=== PATIENT | male | born 1960 | race Two or more races ===

== ENCOUNTER 2020-03-23 17:39 | Inpatient (IN) | payer OTHER ==
[~2020-03-23] VITALS: Ht 170.2 cm; Wt 92.6 kg
--- NOTE | 2020-03-23 18:13 | NUR ---
FLODINA RN: PT TO ROOM 28, PLACED ON [employer], PT HAS PACEMAKER, EKG ORDERED. PT PLACED ON 4LNC, SAT 92%
--- NOTE | 2020-03-23 18:26 | NUR ---
TURNER OFF AT BEDSIDE FOR EKG.
[2020-03-23 18:28] LABS: BASOPHILS % (AUTO) 1 % (0-1); EOSINOPHILS % (AUTO) 2 % (1-7); LYMPHOCYTES % (AUTO) 8 % (22-44); MEAN CORPUSCULAR HGB CONC 34.5 g/dL (33.2-36.2); MEAN PLATELET VOLUME 9.2 fL (7.4-10.4); MONOCYTES % (AUTO) 8 % (2-9); NEUTROPHILS % (AUTO) 81 % (42-75); PLATELET COUNT 241 x10^3/uL (130-400); RED BLOOD COUNT 4.77 x10^6/uL (4.38-5.82); RED CELL DISTRIBUTION WIDTH 13.2 % (9.4-14.8)
[2020-03-23 18:31] LABS: MD NO
[2020-03-23 18:36] LABS: ALBUMIN 2.8 g/dL (3.4-5.0); ANION GAP 7 mmol/L (5-15); CALCIUM 8.4 mg/dL (8.5-10.1); CHLORIDE 105 mmol/L (98-107)
[2020-03-23] MEDS ORDERED: RIVA20TA PO (18:36)
[2020-03-23 18:42] LABS: CREATININE 0.77 mg/dL (0.7-1.3)
--- NOTE | 2020-03-23 18:45 | NUR ---
PT REFUSED PIV PLACEMENT FOR POSSIBLE ADMIT. PT AND (ON PHONE) STATE THEY DON'T WANT PT ADMITTED.
[2020-03-23 18:55] LABS: TROPONIN I 0.694 ng/mL (0.000-0.045)
--- NOTE | 2020-03-23 19:22 | NUR ---
ALL RESULTS BACK AT THIS TIME. CHART UP FOR RECHEKC.
[2020-03-23] MEDS ORDERED: AZITHROMYCIN 500 MG in SODIUM CHLORIDE 0.9% 250 ML IV ONE (19:30)
[2020-03-23] MEDS ORDERED: DEXAMETHASONE 4 MG/ML, 1ML IVPush ONE ×2 (19:30→20:30)
[2020-03-23] MEDS ORDERED: CEFTRIAXONE PMX 1GM/50ML 50 ML IV ONE (19:30)
[2020-03-23] MEDS ORDERED: CEFTRIAXONE PMX 1GM/50ML 50 ML ONE (20:20)
[2020-03-23] MEDS ORDERED: DEXAMETHASONE 4 MG/ML, 1ML ONE (20:20)
[2020-03-23] MEDS ORDERED: ASPIRIN 81 MG TABLET CHEW ONE (20:24)
[2020-03-23] MEDS ORDERED: ASPIRIN 81 MG TABLET CHEW PO ONE (20:30)
--- NOTE | 2020-03-23 20:35 | NUR ---
PT AGREES TO BE ADMITTED. PIV PLACED. MEDS ADMIN PER JUN. PT RESTING COMFORTABLY ON GURNEY. NADN. RESP EVEN AND UNLABORED.
[2020-03-23] MEDS ORDERED: GUAIFENESIN/DM 200-20MG, 10ML UDC PO PRN (21:30)
[2020-03-23] MEDS ORDERED: CEFTRIAXONE PMX 1GM/50ML 50 ML IV SCH (21:30)
[2020-03-23] MEDS ORDERED: HEPARIN 5,000 UNITS/ML, 1ML SQ SCH (21:30)
[2020-03-23] MEDS ORDERED: NITROGLYCERIN 0.4 MG BOTTLE (25 TABS) SL PRN (21:30)
[2020-03-23] MEDS ORDERED: ACETAMINOPHEN 325 MG TABLET PO PRN (21:30)
[2020-03-23] MEDS ORDERED: POLYETHYLENE GLYCOL 17 GM PACKET PO PRN (21:30)
[2020-03-23] MEDS ORDERED: BISACODYL 10 MG SUPP PR PRN (21:30)
[2020-03-23] MEDS ORDERED: AZITHROMYCIN 500 MG in SODIUM CHLORIDE 0.9% 250 ML IV SCH (21:30)
[2020-03-23] MEDS ORDERED: ONDANSETRON ODT 4 MG PO PRN (21:30)
--- NOTE | 2020-03-23 22:22 | NUR ---
REPORT GIVEN TO BHAKTI LEON.
--- NOTE | 2020-03-23 23:30 | NUR ---
PT RESTING ON GURNEY, TALKING ON PHONE. VSS AND NO ADDITIONAL NEEDS EXPRESSED AT THIS TIME.
[2020-03-23] MEDS ORDERED: ASCORBIC ACID 500 MG TABLET ONE (23:54)
[2020-03-24] MEDS: SODIUM CHLORIDE 0.9% 1,000 ML IV SCH ×3 (00:03→15:53)
[2020-03-24] MEDS: ASCORBIC ACID 500 MG TABLET PO SCH ×3 (00:03→20:37)
--- NOTE | 2020-03-24 00:12 | NUR ---
PT PLACED ON HOSPITAL BED AND MEDICATED PER EMAR. VSS AND WILL CONT TO MONITOR.
[2020-03-24 01:02] LABS: TROPONIN I 0.705 ng/mL (0.000-0.045)
--- NOTE | 2020-03-24 01:02 | NUR ---
CRITICAL TROP. 0.800 Rosie GUNN NOTIFIED
--- NOTE | 2020-03-24 01:07 | NUR ---
Dr. Amin notified of Trop 0.705, no additional orders at this time.
--- NOTE | 2020-03-24 02:31 | NUR ---
PT O2 DROPPED TO 85% ON 3L NC, PT PLACED ON OXYMASK AT 5L AT THIS TIME. O2 SAT 92%
--- NOTE | 2020-03-24 04:08 | NUR ---
Report from BHAKTI Mishra. Pt sleeping, On monitor, o2, will continue to monitor.
--- NOTE | 2020-03-24 04:35 | NUR ---
Pt awake, RR unlabored, sats holding between 91-95% on oximask 5l. He denies sob or cp. On monitor paced rhythm no ectopy, no st elevation noted. AIDET provided.
--- NOTE | 2020-03-24 05:04 | NUR ---
Plan for AM; Get-n-Post med, serial trop.
[2020-03-24] MEDS ORDERED: ASPIRIN 81 MG TABLET EC ONE (05:16)
[2020-03-24] MEDS: ASPIRIN 81 MG TABLET EC PO SCH (05:19)
--- NOTE | 2020-03-24 05:22 | NUR ---
Medicated per MAR with few sips of water. No cp, no sob. Sats remain 88-94% on 6L oximask.
[2020-03-24 06:09] LABS: BASOPHILS % (AUTO) 0 % (0-1); EOSINOPHILS % (AUTO) 0 % (1-7); LYMPHOCYTES % (AUTO) 11 % (22-44); MEAN CORPUSCULAR HGB CONC 34.3 g/dL (33.2-36.2); MEAN PLATELET VOLUME 9.1 fL (7.4-10.4); MONOCYTES % (AUTO) 5 % (2-9); NEUTROPHILS % (AUTO) 84 % (42-75); PLATELET COUNT 256 x10^3/uL (130-400); RED BLOOD COUNT 4.54 x10^6/uL (4.38-5.82); RED CELL DISTRIBUTION WIDTH 13.4 % (9.4-14.8)
[2020-03-24 06:12] LABS: MD NO
[2020-03-24 06:21] LABS: ANION GAP 4 mmol/L (5-15); CALCIUM 8.3 mg/dL (8.5-10.1); CHLORIDE 109 mmol/L (98-107); CHOLESTEROL, TOTAL 122 mg/dL (140-239); CREATININE 0.81 mg/dL (0.7-1.3)
[2020-03-24 06:25] LABS: CHOL/HDL RATIO 3.5; HDL CHOL % 29 % (26-37); HDL CHOLESTEROL (DIRECT) 35 mg/dL (40-60); LDL CHOLESTEROL,CALCULATED 74 mg/dL (54-169); LDL/HDL RATIO 2.1 (0.5-3.0); TRIGLYCERIDES 65 mg/dL (50-200); VLDL CHOLESTEROL 13 mg/dL (0-25)
--- NOTE | 2020-03-24 06:37 | NUR ---
Trop trending down, last 0.620. Pt remains CP free, denies sob RR 30.
--- NOTE | 2020-03-24 06:46 | NUR ---
Report to Austin Ernst
--- NOTE | 2020-03-24 07:21 | NUR ---
REPORT FROM BHAKTI THRASHER. UPON ENTRY TO ROOM, PT USING CELL PHONE. NAD NOTED. PT DENIES DISCOMFORT "I FEEL GOOD". RESPIRATIONS EVEN AND UNLABORED ON OXY MASK. SIDE RAILS UP, CALL LIGHT IN REACH.
--- NOTE | 2020-03-24 07:36 | NUR ---
FIRST ATTEMPT TO CALL REPORT.
[2020-03-24] MEDS ORDERED: DEXAMETHASONE 4 MG/ML, 1ML IVPush SCH (09:00)
[2020-03-24] MEDS: methylPREDNISolone SOD SUCC 125 MG/2 ML IV SCH ×3 (09:30→20:36)
[2020-03-24 10:54] VITALS: BP 128/77
[2020-03-24] MEDS: RIVAROXABAN 20 MG TABLET PO SCH (11:02)
[2020-03-24] MEDS: ZINC SULFATE 220 MG CAPSULE PO SCH (11:03)
[2020-03-24] MEDS: SENNA/DOCUSATE TABLET PO SCH (11:03)
[2020-03-24] MEDS: CHOLECALCIFEROL 5,000u TAB PO SCH (11:03)
[2020-03-24 11:18] VITALS: BP 128/77
[2020-03-24 12:31] VITALS: BP 131/74
[2020-03-24 16:19] LABS: HCT (SEDRATE) 46.6 % (39.2-51.8)
[2020-03-24] MEDS: AZITHROMYCIN 500 MG in SODIUM CHLORIDE 0.9% 250 ML IV SCH (20:33)
[2020-03-24] MEDS: MELATONIN 5 MG TABLET PO PRN (21:51)
[2020-03-24] MEDS: CEFTRIAXONE PMX 1GM/50ML 50 ML IV SCH (22:35)
[2020-03-25 00:31] VITALS: BP 134/79
[2020-03-25] MEDS: methylPREDNISolone SOD SUCC 125 MG/2 ML IV SCH ×4 (03:15→20:30)
[2020-03-25] MEDS: SODIUM CHLORIDE 0.9% 1,000 ML IV SCH ×2 (03:15→14:05)
[2020-03-25] MEDS: ASPIRIN 81 MG TABLET EC PO SCH (05:30)
[2020-03-25 06:45] LABS: CHLORIDE 110 mmol/L (98-107)
[2020-03-25 07:42] LABS: BASOPHILS % (AUTO) 0 % (0-1); EOSINOPHILS % (AUTO) 0 % (1-7); LYMPHOCYTES % (AUTO) 4 % (22-44); MEAN CORPUSCULAR HEMOGLOBIN 32.2 pg (27.5-34.5); MEAN CORPUSCULAR HGB CONC 33.3 g/dL (33.2-36.2); MEAN PLATELET VOLUME 8.8 fL (7.4-10.4); MONOCYTES % (AUTO) 3 % (2-9); NEUTROPHILS % (AUTO) 93 % (42-75); PLATELET COUNT 317 x10^3/uL (130-400); RED CELL DISTRIBUTION WIDTH 13.3 % (9.4-14.8)
[2020-03-25 07:52] VITALS: BP 112/74
[2020-03-25 07:53] VITALS: BP 112/74
[2020-03-25 07:58] LABS: ALBUMIN 2.2 g/dL (3.4-5.0); ANION GAP 6 mmol/L (5-15); CALCIUM 7.8 mg/dL (8.5-10.1); CREATININE 0.65 mg/dL (0.7-1.3)
[2020-03-25 08:17] LABS: MD SCAN
[2020-03-25] MEDS: RIVAROXABAN 20 MG TABLET PO SCH (10:24)
[2020-03-25] MEDS: ASCORBIC ACID 500 MG TABLET PO SCH ×2 (10:24→20:30)
[2020-03-25] MEDS: ZINC SULFATE 220 MG CAPSULE PO SCH (10:24)
[2020-03-25] MEDS: CHOLECALCIFEROL 5,000u TAB PO SCH (10:24)
[2020-03-25] MEDS: SENNA/DOCUSATE TABLET PO SCH (10:24)
[2020-03-25 12:55] VITALS: BP 125/79
[2020-03-25 18:51] VITALS: BP 117/63
[2020-03-25] MEDS: MELATONIN 5 MG TABLET PO PRN (20:30)
[2020-03-25] MEDS: AZITHROMYCIN 500 MG in SODIUM CHLORIDE 0.9% 250 ML IV SCH (20:32)
[2020-03-25] MEDS: CEFTRIAXONE PMX 1GM/50ML 50 ML IV SCH (22:58)
[2020-03-26 01:25] VITALS: BP 121/68
[2020-03-26] MEDS: SODIUM CHLORIDE 0.9% 1,000 ML IV SCH (03:46)
[2020-03-26] MEDS: methylPREDNISolone SOD SUCC 125 MG/2 ML IV SCH ×3 (03:46→16:04)
[2020-03-26] MEDS: ASPIRIN 81 MG TABLET EC PO SCH (05:32)
[2020-03-26 07:27] VITALS: BP 128/74
[2020-03-26] MEDS ORDERED: RIVAROXABAN 20 MG TABLET PO SCH (08:00)
[2020-03-26] MEDS: SENNA/DOCUSATE TABLET PO SCH (09:34)
[2020-03-26] MEDS: ASCORBIC ACID 500 MG TABLET PO SCH (09:34)
[2020-03-26] MEDS: CHOLECALCIFEROL 5,000u TAB PO SCH (09:34)
[2020-03-26] MEDS: ZINC SULFATE 220 MG CAPSULE PO SCH (09:34)
[2020-03-26 11:20] LABS: ALBUMIN 2.4 g/dL (3.4-5.0); ANION GAP 4 mmol/L (5-15); CALCIUM 7.9 mg/dL (8.5-10.1); CHLORIDE 110 mmol/L (98-107); CREATININE 0.79 mg/dL (0.7-1.3)
[2020-03-26 11:25] LABS: BASOPHILS % (AUTO) 0 % (0-1); EOSINOPHILS % (AUTO) 0 % (1-7); LYMPHOCYTES % (AUTO) 4 % (22-44); MEAN CORPUSCULAR HEMOGLOBIN 33.7 pg (27.5-34.5); MEAN CORPUSCULAR HGB CONC 34.4 g/dL (33.2-36.2); MONOCYTES % (AUTO) 3 % (2-9); NEUTROPHILS % (AUTO) 93 % (42-75); PLATELET COUNT 369 x10^3/uL (130-400); RED BLOOD COUNT 4.38 x10^6/uL (4.38-5.82); RED CELL DISTRIBUTION WIDTH 13.8 % (9.4-14.8)
[2020-03-26 12:25] LABS: MD SCAN
[2020-03-26 12:26] VITALS: BP 126/79
[2020-03-26] MEDS ORDERED: ZINC220C7 PO (12:39)
[2020-03-26] MEDS ORDERED: CEFD300C37 PO (12:39)
[2020-03-26] MEDS ORDERED: AZIT500T10 PO (12:39)
[2020-03-26] MEDS ORDERED: ASCO500T9 PO (12:39)
[2020-03-26] MEDS ORDERED: FLUT1BLS INH (12:39)
[2020-03-26] MEDS ORDERED: CHOL500045 PO (12:39)
[2020-03-26] MEDS ORDERED: FLUT1AER INH ×2 (17:38)
[2020-03-26] MEDS ORDERED: PRED10TA PO (17:38)
[2020-03-26 18:41] VITALS: BP 131/75
[2020-03-27] MEDS ORDERED: FLUTICASONE/VILANTEROL 100-25MCG/INH INH SCH (09:00)
== END 2020-03-27 00:06 | disposition home or self-care (01) | DRG 177 ==
LOC: ED 21:19 → EDIP 21:34 → 4WST 03-24 09:06
PROVIDERS: ADMIT Internal Medicine; ATTEND Family Medicine
DX: U07.1 COVID-19 (principal); J12.89 Other viral pneumonia; I21.A1 Myocardial infarction type 2; Q20.3 Discordant ventriculoarterial connection; R09.02 Hypoxemia; Z79.01 Long term (current) use of anticoagulants; Z95.0 Presence of cardiac pacemaker
CPT/HCPCS: 36415; 71045; 80048; 80061; 80069; 82040; 82728; 83615; 83735; 84484; 85025; 85379; 85651; 93005; G0378; J0456; J0696; J1100; J2930; J7030; J7050